=== PATIENT | female | born 1985 | race Caucasian/White ===

== ENCOUNTER 2018-12-14 14:51 | Emergency (ER) | payer MEDICAID ==
[~2018-12-14] VITALS: Ht 160 cm; Wt 58.0 kg
[2018-12-14 15:39] LABS: CLARITY URINE CLEAR (CLEAR); COLOR URINE YELLOW (YELLOW); KETONES URINE 1+ (NEGATIVE); LEUKOCYTE ESTERASE URINE 3+ (NEGATIVE); NITRITE URINE NEGATIVE (NEGATIVE); OCCULT BLOOD URINE 3+ (NEGATIVE); PROTEIN URINE NEGATIVE (NEGATIVE); SPECIFIC GRAVITY URINE 1.001 (1.005-1.030); UROBILINOGEN URINE 0.2 E.U./dL (0.2-1.0)
[2018-12-14 23:26] LABS: BASOPHILS % 0.5 % (0.0-2.0); HEMATOCRIT. 37.4 % (36.0-48.0); HEMOGLOBIN. 12.8 g/dL (12.0-16.0); LYMPHOCYTES % 15.2 % (20.0-50.0); MEAN CORPUSCULAR HEMOGLOBIN 31.6 pg (28.0-32.0); MEAN CORPUSCULAR VOLUME 92.2 fL (81.0-99.0); MEAN PLATELET VOLUME 9.4 fl (7.4-10.4); MONOCYTES % 4.9 % (2.0-8.0); NEUTROPHILS % 78.4 % (40.0-76.0); PLATELET 243 x1000/uL (130-400); RED BLOOD CELL COUNT 4.06 mill/uL (4.2-5.4); RED CELL DISTRIBUTION WIDTH 13.1 % (11.6-14.6)
[2018-12-14 23:39] LABS: CHLORIDE 108 mEq/L (98-107)
[2018-12-14] MEDS ORDERED: SODIUM CHLORIDE 0.9% 1,000 ML IV ONE (23:43)
[2018-12-14] MEDS ORDERED: CEFTRIAXONE 1 G PREMIX 50 ML IV ONE (23:45)
[2018-12-15 00:03] LABS: B-HCG QUANTITATIVE 88032 mIU/mL (<3)
[2018-12-15] MEDS: ACETAMINOPHEN 325MG TABLET PO PRN ×2 (00:28→00:29)
[2018-12-15 02:26] VITALS: BP 122/66
== END 2018-12-15 02:27 | disposition home or self-care (01) ==
LOC: ER 15:03
DX: O23.11 Infections of bladder in pregnancy, first trimester (principal); Z3A.08 8 weeks gestation of pregnancy
CPT/HCPCS: 36415; 76801; 76817; 80053; 81003; 81025; 84702; 85025; 87077; 87086; 87186; 96374; 99284; J0696; J7030